=== PATIENT | female | born 1980 | race Two or more races ===

== ENCOUNTER → 2024-04-06 | Outpatient (CLI) | payer MEDICAID, SELFPAY ==
--- NOTE | 2024-04-06 11:15 | XR_ITS ---
Examination: Screening digital mammography, bilateral Computer aided detection 3-D breast Tomosynthesis, bilateral Date and time of exam: April 06, 2024 1124 hours No priors Indication: Screening Technique: Nonmagnified MLO, CC views of the breasts to been obtained, reconstructed from 3-D Tomosynthesis images. R2 computer aided detection program utilized for evaluation of suspicious masses and/or abnormal calcifications. 3-D Tomosynthesis images obtained. Findings: The breasts are heterogeneously dense, which may obscure small masses Focal asymmetric density 4 cm upper outer left breast which may represent glandular tissue 10 mm more nodular density outer left breast CC view anterior depth likely upper left breast on the MLO view Impression: BI-RADS Category 0: Incomplete: Need additional imaging evaluation 10 mm nodular asymmetry upper outer left breast, recommend follow-up spot tomographic views upper outer quadrant left breast anterior depth, recommend left breast sonography to complete the workup
== END | disposition home or self-care (01) ==
LOC: CDIM 11:15
PROVIDERS: Referring Provider Nurse Practitioner Family; Visit Provider Nurse Practitioner Family
DX: Z12.31 Encounter for screening mammogram for malignant neoplasm of breast (principal); N64.89 Other specified disorders of breast
CPT/HCPCS: 77063; 77067